=== PATIENT | male | born 1940 | race African-American/Black ===

== ENCOUNTER 2022-01-10 17:17 | Inpatient (IN) ==
[2022-01-10] MEDS ORDERED: SODIUM CHLORIDE 0.9% 1,000 ML IV STA ×2 (17:53→18:41)
[2022-01-10] MEDS ORDERED: PANTOPRAZOLE 40 MG VIAL IV STA (17:53)
[2022-01-10 18:01] LABS: Basophils % 0.1 % (0.0-0.8); Eosinophils % 0.1 % (0.00-10.9); Hematocrit 28.4 VOL% (42.0-52.0); Hemoglobin 9.1 GM/DL (14.0-18.0); Immature Granulocytes % 0.6 %; Immature Granulocytes Absolute 0.06 #; Lymphocytes # 0.7 10*3/uL (1.4-4.0); Lymphocytes % 6.9 % (21.2-54.2); Mean Corpuscular Volume 96.9 FL (87-102); Monocytes # 0.5 10*3/uL (0.11-0.8); Monocytes % 4.5 % (1.7-12.7); NRBC # 0.02 10*3/uL; Neutrophils % 87.8 % (38.7-73.9); Platelet Count 232 T/CUMM (130-400); Red Blood Count 2.93 MC/CUMM (3.8-5.5); Red Cell Distribution Width 14.3 % (9.3-17.3); White Blood Count 10.7 T/CUMM (4-12)
[2022-01-10 18:18] LABS: PT Patient Result 11.3 SECS (10.5-12.0)
[2022-01-10] MEDS ORDERED: ONDANSETRON 4 MG/2 ML VIAL ONE (18:31)
[2022-01-10 18:44] LABS: Bilirubin,Total 0.6 MG/DL (0.20-1.00); Calcium 9.6 MG/DL (8.5-10.1); Osmolality,Calculated 348.1 MOS/KG (273-304); Potassium 3.2 MMOL/L (3.5-5.1); Total Protein 7.8 G/DL (6.4-8.2)
[2022-01-10] MEDS ORDERED: NOREPINEPHRINE 4 MG/4 ML VIAL IV ONE (19:33)
[2022-01-10] MEDS ORDERED: PIPERACILLIN/TAZOBACTAM 3,375 MG in SODIUM CHLORIDE 0.9% 100 ML IV STA (19:40)
[2022-01-10] MEDS: NOREPINEPHRINE 8 MG in SODIUM CHLORIDE 0.9% 242 ML IV PRN (20:07)
[2022-01-10] MEDS ORDERED: ONDANSETRON 4 MG/2 ML VIAL IV PRN (20:14)
[2022-01-10] MEDS ORDERED: ALBUTEROL 2.5 MG/3 ML NEB RESP TX PRN (20:14)
[2022-01-10] MEDS ORDERED: SODIUM CHLORIDE 0.9% 1,000 ML IV PRN (20:28)
[2022-01-10] MEDS: SODIUM CHLORIDE 0.9% 1,000 ML IV SCH (20:30)
[2022-01-10 20:33] LABS: Hematocrit 20.3 VOL% (42.0-52.0); Hemoglobin 6.6 GM/DL (14.0-18.0)
[2022-01-10] MEDS ORDERED: ONDANSETRON 4 MG/2 ML VIAL IV STA (21:02)
[2022-01-10] MEDS ORDERED: MAGNESIUM SULF RIDER 2 GM/50 ML PREMIX IV PRN (21:48)
[2022-01-10] MEDS ORDERED: POTASSIUM CHLORIDE RIDER 10 MEQ/100 ML PREMIX IV PRN (21:48)
[2022-01-10] MEDS ORDERED: MAGNESIUM SULF RIDER 4 GM/100 ML PREMIX IV PRN (21:48)
[2022-01-10] MEDS: PANTOPRAZOLE INJ 200 MG in SODIUM CHLORIDE 0.9% 250 ML IV SCH (23:15)
[2022-01-10 23:27] LABS: Hematocrit 31.2 VOL% (42.0-52.0); Hemoglobin 10.5 GM/DL (14.0-18.0)
[2022-01-11] MEDS ORDERED: GLUCAGON 1 MG VIAL IM PRN (00:20)
[2022-01-11] MEDS ORDERED: DEXTROSE 10% 250 ML BAG IV PRN (00:22)
[2022-01-11 00:33] LABS: Hematocrit 30.1 VOL% (42.0-52.0); Hemoglobin 9.9 GM/DL (14.0-18.0)
[2022-01-11 03:33] LABS: Basophils % 0.1 % (0.0-0.8); Hemoglobin 8.8 GM/DL (14.0-18.0); Immature Granulocytes % 0.6 %; Immature Granulocytes Absolute 0.09 #; Lymphocytes # 0.5 10*3/uL (1.4-4.0); Lymphocytes % 3.1 % (21.2-54.2); Mean Corpuscular HGB Conc 33.8 GM/DL (32-36); Mean Corpuscular Volume 91.5 FL (87-102); Mean Platelet Volume 10.9 FL (9.6-12.0); Monocytes # 0.9 10*3/uL (0.11-0.8); Monocytes % 5.9 % (1.7-12.7); NRBC # 0.04 10*3/uL; Neutrophils % 90.3 % (38.7-73.9); Platelet Count 143 T/CUMM (130-400); Red Blood Count 2.84 MC/CUMM (3.8-5.5); Red Cell Distribution Width 14.1 % (9.3-17.3)
[2022-01-11 03:45] LABS: INR 1.1; PT Patient Result 12.2 SECS (10.5-12.0)
[2022-01-11 03:56] LABS: Lymphocytes 3 % (20-55); Platelet Estimate Adequate; Total Cells Counted 100
[2022-01-11 03:57] LABS: Acanthocytes Few; Poikilocytosis Slight
[2022-01-11 04:02] LABS: Albumin 2.1 G/DL (3.4-5.0); Bilirubin,Total 0.7 MG/DL (0.20-1.00); Calcium 7.7 MG/DL (8.5-10.1); Osmolality,Calculated 350.4 MOS/KG (273-304); Potassium 3.3 MMOL/L (3.5-5.1); Total Protein 5.3 G/DL (6.4-8.2)
[2022-01-11] MEDS: SODIUM CHLORIDE 0.9% 1,000 ML IV SCH ×5 (04:53→21:55)
[2022-01-11] MEDS: MORPHINE 2 MG/1 ML SYRINGE IV PRN (04:54)
[2022-01-11 05:14] LABS: Amorphous Crystals,Urine Few /HPF (Few); Bacteria,Urine Many /HPF (Few); RBC,Urine 52 /HPF (0-4)
[2022-01-11 05:19] LABS: Urine Appearance Cloudy (Clear); Urine Color Yellow (Yellow); Urine Specific Gravity 1.015 (1.001-1.035); Urine pH 5.5 (4.5-8.0)
[2022-01-11 05:20] LABS: Bilirubin,Urine Negative (Negative); Blood, Urine Moderate mg/dL (Negative); Glucose,Urine (UA) Negative (Negative); Ketones,Urine Negative (Negative); Nitrite,Urine Negative (Negative); Protein,Urine Negative (Negative); Urine Urobilinogen 0.2 eU/dL (<2.0)
[2022-01-11] MEDS ORDERED: SODIUM CHLORIDE 0.9% 1,000 ML IV PRN (06:00)
[2022-01-11] MEDS: INSULIN LISPRO 100 UNIT/ML SUBCUT SCH ×3 (06:10→18:05)
[2022-01-11] MEDS: NOREPINEPHRINE 8 MG in SODIUM CHLORIDE 0.9% 242 ML IV PRN ×3 (06:30→21:20)
[2022-01-11] MEDS ORDERED: HEPARIN/NACL 0.9% 2 UNITS/ML 6,000 UNIT/3,000 ML BAG IV ONE (09:41)
[2022-01-11] MEDS ORDERED: fentaNYL 100 MCG/2 ML VIAL ONE (09:55)
[2022-01-11] MEDS ORDERED: ceFAZolin 1,000 MG VIAL ONE (09:56)
[2022-01-11] MEDS ORDERED: MIDAZOLAM 2 MG/2 ML VIAL ONE (09:56)
[2022-01-11] MEDS ORDERED: NOREPINEPHRINE 4 MG/4 ML VIAL IV ONE (10:01)
[2022-01-11 10:55] LABS: Risk Ratio 2.94; VLDL Cholesterol 20.8 MG/DL
[2022-01-11 12:55] LABS: Hematocrit 25.1 VOL% (42.0-52.0); Hemoglobin 8.8 GM/DL (14.0-18.0)
[2022-01-11] MEDS: BISACODYL 5 MG TABLET NG SCH ×3 (13:47→22:30)
[2022-01-11] MEDS ORDERED: POLYETHYLENE GLYCOL 3350/ELECTROLYTES 4,000 ML BOTTLE NG ONE (14:00)
[2022-01-11] MEDS: PIPERACILLIN/TAZOBACTAM 3,375 MG in SODIUM CHLORIDE 0.9% 100 ML IV SCH (14:37)
[2022-01-11] MEDS: LACTULOSE 20 GM/30 ML UDCUP PO SCH ×3 (14:37→21:55)
[2022-01-11 18:07] LABS: Hemoglobin 8.5 GM/DL (14.0-18.0)
[2022-01-11 20:11] LABS: Hematocrit 23.1 VOL% (42.0-52.0); Hemoglobin 8.1 GM/DL (14.0-18.0)
[2022-01-11] MEDS ORDERED: MAGNESIUM CITRATE 300 ML BOTTLE PO ONE ×2 (21:00→22:00)
[2022-01-11] MEDS: PANTOPRAZOLE INJ 200 MG in SODIUM CHLORIDE 0.9% 250 ML IV SCH (21:55)
[2022-01-11] MEDS ORDERED: METHYL SALICYLATE 60 ML BOTTLE TOP PRN (22:00)
[2022-01-11] MEDS: PANTOPRAZOLE 40 MG VIAL IV SCH (23:00)
[2022-01-12] MEDS: SODIUM CHLORIDE 0.9% 1,000 ML IV SCH ×4 (00:03→17:10)
[2022-01-12] MEDS: INSULIN LISPRO 100 UNIT/ML SUBCUT SCH ×4 (00:22→17:30)
[2022-01-12 00:31] LABS: Hematocrit 24.3 VOL% (42.0-52.0); Hemoglobin 8.4 GM/DL (14.0-18.0)
[2022-01-12] MEDS: PIPERACILLIN/TAZOBACTAM 3,375 MG in SODIUM CHLORIDE 0.9% 100 ML IV SCH (02:00)
[2022-01-12 03:51] LABS: Basophils % 0.1 % (0.0-0.8); Hematocrit 22.4 VOL% (42.0-52.0); Immature Granulocytes % 0.7 %; Lymphocytes # 0.4 10*3/uL (1.4-4.0); Lymphocytes % 2.6 % (21.2-54.2); Mean Corpuscular HGB Conc 35.7 GM/DL (32-36); Mean Corpuscular Volume 89.6 FL (87-102); Mean Platelet Volume 10.7 FL (9.6-12.0); Monocytes # 0.7 10*3/uL (0.11-0.8); Monocytes % 4.8 % (1.7-12.7); NRBC # 0.04 10*3/uL; Neutrophils % 91.8 % (38.7-73.9); Platelet Count 96 T/CUMM (130-400); Red Cell Distribution Width 14.2 % (9.3-17.3); White Blood Count 14.5 T/CUMM (4-12)
[2022-01-12 04:10] LABS: Band Neutrophils 1 % (0-10); Lymphocytes 3 % (20-55); Polychromasia Slight; Total Cells Counted 100
[2022-01-12 04:12] LABS: Microcytosis 1+
[2022-01-12 04:32] LABS: Albumin 1.9 G/DL (3.4-5.0); Bilirubin,Total 0.5 MG/DL (0.20-1.00); Calcium 7.4 MG/DL (8.5-10.1); Total Protein 4.7 G/DL (6.4-8.2)
[2022-01-12 04:33] LABS: Potassium 2.5 MMOL/L (3.5-5.1)
[2022-01-12] MEDS ORDERED: POTASSIUM CHLORIDE RIDER 10 MEQ/100 ML PREMIX IV PRN (04:43)
[2022-01-12] MEDS: POTASSIUM CHLORIDE RIDER 20 MEQ/100 ML PREMIX IV PRN ×4 (05:00→13:53)
[2022-01-12] MEDS: NOREPINEPHRINE 8 MG in SODIUM CHLORIDE 0.9% 242 ML IV PRN (06:06)
[2022-01-12 07:11] LABS: Hemoglobin 7.3 GM/DL (14.0-18.0)
[2022-01-12] MEDS: LACTULOSE 20 GM/30 ML UDCUP PO SCH ×5 (08:19→22:00)
[2022-01-12 08:21] LABS: INR 1.1; PT Patient Result 12.3 SECS (10.5-12.0)
[2022-01-12] MEDS: metroNIDAZOLE INJ 500 MG/100 ML PREMIX IV SCH ×2 (08:50→20:00)
[2022-01-12] MEDS: PANTOPRAZOLE 40 MG VIAL IV SCH ×2 (08:50→21:00)
[2022-01-12] MEDS: cefTRIAXone 1,000 MG in SODIUM CHLORIDE 0.9% 100 ML IV SCH (08:50)
[2022-01-12] MEDS ORDERED: ETOMIDATE 20 MG/10 ML VIAL IV ONE (08:58)
[2022-01-12] MEDS ORDERED: LIDOCAINE 2% 5 ML VIAL ONE (08:58)
[2022-01-12] MEDS ORDERED: propofoL 200 MG/20 ML VIAL IV ONE (08:58)
[2022-01-12] MEDS ORDERED: KETAMINE 500 MG/10 ML VIAL ONE (10:06)
[2022-01-12] MEDS ORDERED: SODIUM CHLORIDE 0.9% 1,000 ML IV PRN (10:14)
[2022-01-12 10:22] LABS: Calcium 7.1 MG/DL (8.5-10.1); Osmolality,Calculated 343.7 MOS/KG (273-304); Potassium 3.4 MMOL/L (3.5-5.1)
[2022-01-12] MEDS ORDERED: ZINC OXIDE PASTE 113 GM TUBE TOP PRN (15:13)
[2022-01-12 18:52] LABS: Hematocrit 29.8 VOL% (42.0-52.0); Hemoglobin 10.2 GM/DL (14.0-18.0)
[2022-01-13] MEDS: INSULIN LISPRO 100 UNIT/ML SUBCUT SCH ×4 (00:28→18:01)
[2022-01-13] MEDS: SODIUM CHLORIDE 0.9% 1,000 ML IV SCH ×2 (01:01→06:19)
[2022-01-13] MEDS: NOREPINEPHRINE 8 MG in SODIUM CHLORIDE 0.9% 242 ML IV PRN (01:55)
[2022-01-13] MEDS: LACTULOSE 20 GM/30 ML UDCUP PO SCH ×6 (02:00→22:22)
[2022-01-13] MEDS: POTASSIUM CHLORIDE RIDER 20 MEQ/100 ML PREMIX IV PRN ×6 (04:15→19:10)
[2022-01-13 04:24] LABS: Basophils % 0.1 % (0.0-0.8); Eosinophils % 0.1 % (0.00-10.9); Hematocrit 27.5 VOL% (42.0-52.0); Hemoglobin 9.6 GM/DL (14.0-18.0); Immature Granulocytes % 0.8 %; Immature Granulocytes Absolute 0.11 #; Lymphocytes # 0.5 10*3/uL (1.4-4.0); Lymphocytes % 3.7 % (21.2-54.2); Mean Corpuscular HGB Conc 34.9 GM/DL (32-36); Mean Corpuscular Volume 87.9 FL (87-102); Mean Platelet Volume 10.9 FL (9.6-12.0); Monocytes # 0.7 10*3/uL (0.11-0.8); Monocytes % 4.9 % (1.7-12.7); NRBC # 0.04 10*3/uL; Neutrophils % 90.4 % (38.7-73.9); Platelet Count 75 T/CUMM (130-400); Red Blood Count 3.13 MC/CUMM (3.8-5.5); Red Cell Distribution Width 15.7 % (9.3-17.3)
[2022-01-13 04:38] LABS: Alanine Aminotransferase 42 U/L (16-61); Albumin 1.7 G/DL (3.4-5.0); Alkaline Phosphatase 161 U/L (45-117); Aspartate Amino Transferase 102 U/L (0-37); Bilirubin,Total < 0.39 MG/DL (0.20-1.00); Blood Urea Nitrogen 148 MG/DL (7-18); Calcium 7.5 MG/DL (8.5-10.1); Carbon Dioxide 20 MMOL/L (21-32); Chloride 122 MMOL/L (98-107); Glucose 186 MG/DL (74-106); Osmolality,Calculated 351.9 MOS/KG (273-304); Potassium 2.7 MMOL/L (3.5-5.1); Sodium 151 MMOL/L (136-145); Total Protein 4.3 G/DL (6.4-8.2)
[2022-01-13 04:42] LABS: Lymphocytes 6 % (20-55); Total Cells Counted 100
[2022-01-13 04:43] LABS: Burr Cells Few; Microcytosis 1+; Ovalocytes Slight
[2022-01-13 04:44] LABS: Platelet Estimate Decreased; Polychromasia Slight
[2022-01-13 07:06] LABS: INR 1.1; PT Patient Result 11.9 SECS (10.5-12.0)
[2022-01-13] MEDS: metroNIDAZOLE INJ 500 MG/100 ML PREMIX IV SCH ×2 (09:06→21:51)
[2022-01-13] MEDS: cefTRIAXone 1,000 MG in SODIUM CHLORIDE 0.9% 100 ML IV SCH (09:06)
[2022-01-13] MEDS: PANTOPRAZOLE 40 MG VIAL IV SCH ×2 (09:07→21:55)
[2022-01-13] MEDS: MORPHINE 2 MG/1 ML SYRINGE IV PRN (14:46)
[2022-01-13 23:08] LABS: Calcium 7.7 MG/DL (8.5-10.1); Potassium 3.8 MMOL/L (3.5-5.1)
[2022-01-13 23:10] LABS: Osmolality,Calculated 355.6 MOS/KG (273-304)
[2022-01-14] MEDS: INSULIN LISPRO 100 UNIT/ML SUBCUT SCH ×5 (01:41→23:44)
[2022-01-14] MEDS: MORPHINE 2 MG/1 ML SYRINGE IV PRN ×3 (02:00→21:42)
[2022-01-14 03:15] LABS: Basophils % 0.1 % (0.0-0.8); Eosinophils % 0.1 % (0.00-10.9); Hematocrit 26.5 VOL% (42.0-52.0); Hemoglobin 8.9 GM/DL (14.0-18.0); Immature Granulocytes % 0.9 %; Immature Granulocytes Absolute 0.12 #; Lymphocytes # 0.5 10*3/uL (1.4-4.0); Lymphocytes % 3.9 % (21.2-54.2); Mean Corpuscular HGB Conc 33.6 GM/DL (32-36); Mean Corpuscular Volume 89.2 FL (87-102); Mean Platelet Volume 10.7 FL (9.6-12.0); Monocytes # 0.6 10*3/uL (0.11-0.8); Monocytes % 4.5 % (1.7-12.7); NRBC # 0.03 10*3/uL; Neutrophils % 90.5 % (38.7-73.9); Red Blood Count 2.97 MC/CUMM (3.8-5.5); Red Cell Distribution Width 17.3 % (9.3-17.3); White Blood Count 13.2 T/CUMM (4-12)
[2022-01-14] MEDS: LACTULOSE 20 GM/30 ML UDCUP PO SCH ×5 (03:19→22:26)
[2022-01-14 03:31] LABS: Osmolality,Calculated 353.3 MOS/KG (273-304); Phosphorous 1.8 MG/DL (2.5-4.9); Potassium 3.7 MMOL/L (3.5-5.1)
[2022-01-14 03:44] LABS: Platelet Count 77 T/CUMM (130-400)
[2022-01-14 03:54] LABS: Lymphocytes 1 % (20-55); Platelet Estimate Decreased; Total Cells Counted 100
[2022-01-14] MEDS: POTASSIUM CHLORIDE RIDER 20 MEQ/100 ML PREMIX IV PRN (04:30)
[2022-01-14] MEDS: cefTRIAXone 1,000 MG in SODIUM CHLORIDE 0.9% 100 ML IV SCH (08:02)
[2022-01-14] MEDS: PANTOPRAZOLE 40 MG VIAL IV SCH ×2 (08:03→21:40)
[2022-01-14] MEDS: metroNIDAZOLE INJ 500 MG/100 ML PREMIX IV SCH (08:28)
[2022-01-14] MEDS ORDERED: POTASSIUM PHOSPHATE 30 MMOL in SODIUM CHLORIDE 0.9% 250 ML IV ONE (10:00)
[2022-01-14] MEDS: MEMANTINE 5 MG TABLET PO SCH (21:41)
[2022-01-14] MEDS: RIVASTIGMINE 1.5 MG CAPSULE PO SCH (21:41)
[2022-01-15 03:24] LABS: Basophils % 0.1 % (0.0-0.8); Eosinophils # 0.1 10*3/uL (0.0-0.87); Eosinophils % 0.6 % (0.00-10.9); Hematocrit 26.7 VOL% (42.0-52.0); Hemoglobin 8.8 GM/DL (14.0-18.0); Immature Granulocytes % 0.5 %; Immature Granulocytes Absolute 0.06 #; Lymphocytes # 0.6 10*3/uL (1.4-4.0); Lymphocytes % 5.6 % (21.2-54.2); Mean Corpuscular Volume 92.7 FL (87-102); Mean Platelet Volume 11.1 FL (9.6-12.0); Monocytes # 0.6 10*3/uL (0.11-0.8); Monocytes % 5.3 % (1.7-12.7); NRBC # 0.05 10*3/uL; Neutrophils % 87.9 % (38.7-73.9); Platelet Count 75 T/CUMM (130-400); Red Blood Count 2.88 MC/CUMM (3.8-5.5); Red Cell Distribution Width 18.4 % (9.3-17.3)
[2022-01-15 03:45] LABS: Alanine Aminotransferase 30 U/L (16-61); Albumin 1.6 G/DL (3.4-5.0); Alkaline Phosphatase 225 U/L (45-117); Aspartate Amino Transferase 75 U/L (0-37); Bilirubin,Total < 0.39 MG/DL (0.20-1.00); Blood Urea Nitrogen 134 MG/DL (7-18); Calcium 8.3 MG/DL (8.5-10.1); Carbon Dioxide 21 MMOL/L (21-32); Chloride 130 MMOL/L (98-107); Glucose 131 MG/DL (74-106); Osmolality,Calculated 356.9 MOS/KG (273-304); Potassium 4.4 MMOL/L (3.5-5.1); Sodium 158 MMOL/L (136-145); Total Protein 4.7 G/DL (6.4-8.2)
[2022-01-15] MEDS: INSULIN LISPRO 100 UNIT/ML SUBCUT SCH ×4 (05:14→23:51)
[2022-01-15] MEDS: LACTULOSE 20 GM/30 ML UDCUP PO SCH ×3 (09:15→20:41)
[2022-01-15] MEDS: RIVASTIGMINE 1.5 MG CAPSULE PO SCH ×2 (09:15→20:41)
[2022-01-15] MEDS: MULTIVITAMIN (CENTRUM) TABLET PO SCH (09:15)
[2022-01-15] MEDS: CHOLECALCIFEROL 1,000 UNIT TABLET PO SCH (09:15)
[2022-01-15] MEDS: MEMANTINE 5 MG TABLET PO SCH ×2 (09:15→20:41)
[2022-01-15] MEDS: allopurinoL 300 MG TABLET PO SCH (09:15)
[2022-01-15] MEDS: DEXTROSE 5% 1,000 ML IV SCH (09:30)
[2022-01-15] MEDS: PANTOPRAZOLE 40 MG VIAL IV SCH ×2 (11:07→20:41)
[2022-01-15] MEDS: MORPHINE 2 MG/1 ML SYRINGE IV PRN (14:44)
[2022-01-16 03:21] LABS: Basophils % 0.1 % (0.0-0.8); Eosinophils # 0.1 10*3/uL (0.0-0.87); Eosinophils % 1.4 % (0.00-10.9); Hematocrit 25.3 VOL% (42.0-52.0); Hemoglobin 8.2 GM/DL (14.0-18.0); Immature Granulocytes % 0.9 %; Immature Granulocytes Absolute 0.08 #; Lymphocytes # 0.8 10*3/uL (1.4-4.0); Lymphocytes % 8.2 % (21.2-54.2); Mean Corpuscular HGB Conc 32.4 GM/DL (32-36); Mean Corpuscular Volume 96.2 FL (87-102); Mean Platelet Volume 11.4 FL (9.6-12.0); Monocytes # 0.7 10*3/uL (0.11-0.8); Monocytes % 7.2 % (1.7-12.7); NRBC # 0.06 10*3/uL; Neutrophils % 82.2 % (38.7-73.9); Platelet Count 76 T/CUMM (130-400); Red Blood Count 2.63 MC/CUMM (3.8-5.5); Red Cell Distribution Width 19.4 % (9.3-17.3); White Blood Count 9.3 T/CUMM (4-12)
[2022-01-16 03:37] LABS: Alanine Aminotransferase 54 U/L (16-61); Albumin 1.5 G/DL (3.4-5.0); Alkaline Phosphatase 259 U/L (45-117); Aspartate Amino Transferase 124 U/L (0-37); Bilirubin,Total < 0.39 MG/DL (0.20-1.00); Blood Urea Nitrogen 129 MG/DL (7-18); Carbon Dioxide 22 MMOL/L (21-32); Chloride 126 MMOL/L (98-107); Glucose 175 MG/DL (74-106); Osmolality,Calculated 350.4 MOS/KG (273-304); Potassium 4.2 MMOL/L (3.5-5.1); Sodium 154 MMOL/L (136-145); Total Protein 4.5 G/DL (6.4-8.2)
[2022-01-16 04:02] LABS: Platelet Estimate Decreased
[2022-01-16] MEDS: INSULIN LISPRO 100 UNIT/ML SUBCUT SCH ×3 (06:12→18:57)
[2022-01-16] MEDS: DEXTROSE 5% 1,000 ML IV SCH (06:12)
[2022-01-16] MEDS: LACTULOSE 20 GM/30 ML UDCUP PO SCH ×2 (09:15→20:23)
[2022-01-16] MEDS: MULTIVITAMIN (CENTRUM) TABLET PO SCH (09:15)
[2022-01-16] MEDS: allopurinoL 300 MG TABLET PO SCH (09:15)
[2022-01-16] MEDS: CHOLECALCIFEROL 1,000 UNIT TABLET PO SCH (09:15)
[2022-01-16] MEDS: PANTOPRAZOLE 40 MG VIAL IV SCH ×2 (09:15→20:23)
[2022-01-16] MEDS: MEMANTINE 5 MG TABLET PO SCH ×2 (09:15→20:24)
[2022-01-16] MEDS: RIVASTIGMINE 1.5 MG CAPSULE PO SCH ×2 (09:15→20:23)
[2022-01-16] MEDS ORDERED: FUROSEMIDE 100 MG/10 ML VIAL IV ONE (13:34)
[2022-01-17] MEDS: INSULIN LISPRO 100 UNIT/ML SUBCUT SCH ×5 (00:12→20:04)
[2022-01-17] MEDS: DEXTROSE 5% 1,000 ML IV SCH ×2 (02:46→22:49)
[2022-01-17 06:08] LABS: Basophils % 0.1 % (0.0-0.8); Eosinophils # 0.1 10*3/uL (0.0-0.87); Hematocrit 26.1 VOL% (42.0-52.0); Hemoglobin 8.7 GM/DL (14.0-18.0); Lymphocytes # 1.1 10*3/uL (1.4-4.0); Lymphocytes % 10.8 % (21.2-54.2); Mean Corpuscular HGB Conc 33.3 GM/DL (32-36); Mean Corpuscular Volume 91.6 FL (87-102); Mean Platelet Volume 11.3 FL (9.6-12.0); Monocytes # 0.7 10*3/uL (0.11-0.8); Monocytes % 7.4 % (1.7-12.7); NRBC # 0.04 10*3/uL; Neutrophils % 79.7 % (38.7-73.9); Platelet Count 81 T/CUMM (130-400); Red Blood Count 2.85 MC/CUMM (3.8-5.5); Red Cell Distribution Width 19.3 % (9.3-17.3); White Blood Count 9.9 T/CUMM (4-12)
[2022-01-17 06:29] LABS: Hypochromia 1+; Platelet Estimate Decreased
[2022-01-17 06:33] LABS: Alanine Aminotransferase 54 U/L (16-61); Albumin 1.8 G/DL (3.4-5.0); Alkaline Phosphatase 242 U/L (45-117); Aspartate Amino Transferase 104 U/L (0-37); Bilirubin,Total < 0.39 MG/DL (0.20-1.00); Blood Urea Nitrogen 126 MG/DL (7-18); Calcium 8.5 MG/DL (8.5-10.1); Carbon Dioxide 22 MMOL/L (21-32); Chloride 120 MMOL/L (98-107); Glucose 144 MG/DL (74-106); Osmolality,Calculated 337.3 MOS/KG (273-304); Phosphorous 2.7 MG/DL (2.5-4.9); Potassium 3.9 MMOL/L (3.5-5.1); Sodium 148 MMOL/L (136-145); Total Protein 5.2 G/DL (6.4-8.2)
[2022-01-17] MEDS: allopurinoL 300 MG TABLET PO SCH (09:05)
[2022-01-17] MEDS: RIVASTIGMINE 1.5 MG CAPSULE PO SCH ×2 (09:05→20:04)
[2022-01-17] MEDS: CHOLECALCIFEROL 1,000 UNIT TABLET PO SCH (09:05)
[2022-01-17] MEDS: MEMANTINE 5 MG TABLET PO SCH ×2 (09:05→20:04)
[2022-01-17] MEDS: MULTIVITAMIN (CENTRUM) TABLET PO SCH (09:05)
[2022-01-17] MEDS: LACTULOSE 20 GM/30 ML UDCUP PO SCH ×2 (09:05→20:04)
[2022-01-17] MEDS: PANTOPRAZOLE 40 MG VIAL IV SCH ×2 (10:06→20:04)
[2022-01-18 03:57] LABS: Basophils % 0.2 % (0.0-0.8); Eosinophils # 0.1 10*3/uL (0.0-0.87); Eosinophils % 1.3 % (0.00-10.9); Hematocrit 26.1 VOL% (42.0-52.0); Hemoglobin 8.6 GM/DL (14.0-18.0); Immature Granulocytes % 1.2 %; Lymphocytes % 11.4 % (21.2-54.2); Mean Corpuscular Volume 92.2 FL (87-102); Mean Platelet Volume 10.9 FL (9.6-12.0); Monocytes # 0.7 10*3/uL (0.11-0.8); Monocytes % 7.5 % (1.7-12.7); NRBC # 0.05 10*3/uL; Neutrophils % 78.4 % (38.7-73.9); Red Blood Count 2.83 MC/CUMM (3.8-5.5); Red Cell Distribution Width 18.8 % (9.3-17.3); White Blood Count 8.7 T/CUMM (4-12)
[2022-01-18 04:02] LABS: Platelet Count 84 T/CUMM (130-400)
[2022-01-18 04:11] LABS: Calcium 8.2 MG/DL (8.5-10.1); Osmolality,Calculated 322.8 MOS/KG (273-304); Potassium 3.7 MMOL/L (3.5-5.1)
[2022-01-18 04:21] LABS: Platelet Estimate Decreased
[2022-01-18] MEDS: INSULIN LISPRO 100 UNIT/ML SUBCUT SCH ×4 (07:07→21:02)
[2022-01-18] MEDS: LACTULOSE 20 GM/30 ML UDCUP PO SCH ×2 (08:41→21:47)
[2022-01-18] MEDS: MULTIVITAMIN (CENTRUM) TABLET PO SCH (08:42)
[2022-01-18] MEDS: PANTOPRAZOLE 40 MG VIAL IV SCH ×2 (08:42→21:47)
[2022-01-18] MEDS: CHOLECALCIFEROL 1,000 UNIT TABLET PO SCH (08:42)
[2022-01-18] MEDS: MEMANTINE 5 MG TABLET PO SCH ×2 (08:42→21:47)
[2022-01-18] MEDS: RIVASTIGMINE 1.5 MG CAPSULE PO SCH ×2 (08:42→21:47)
[2022-01-18] MEDS: allopurinoL 300 MG TABLET PO SCH (08:42)
[2022-01-18] MEDS: DEXTROSE 5% 1,000 ML IV SCH (18:15)
[2022-01-19 04:24] LABS: Basophils % 0.2 % (0.0-0.8); Eosinophils # 0.1 10*3/uL (0.0-0.87); Eosinophils % 1.1 % (0.00-10.9); Hematocrit 24.5 VOL% (42.0-52.0); Immature Granulocytes % 1.2 %; Immature Granulocytes Absolute 0.08 #; Lymphocytes # 0.8 10*3/uL (1.4-4.0); Lymphocytes % 12.3 % (21.2-54.2); Mean Corpuscular HGB Conc 32.7 GM/DL (32-36); Mean Corpuscular Volume 91.1 FL (87-102); Mean Platelet Volume 11.7 FL (9.6-12.0); Monocytes # 0.4 10*3/uL (0.11-0.8); Monocytes % 6.2 % (1.7-12.7); Red Blood Count 2.69 MC/CUMM (3.8-5.5); Red Cell Distribution Width 18.2 % (9.3-17.3); White Blood Count 6.7 T/CUMM (4-12)
[2022-01-19 04:33] LABS: Platelet Count 95 T/CUMM (130-400)
[2022-01-19 04:37] LABS: Calcium 8.4 MG/DL (8.5-10.1); Osmolality,Calculated 311.4 MOS/KG (273-304); Potassium 3.3 MMOL/L (3.5-5.1)
[2022-01-19 04:48] LABS: Lymphocytes 15 % (20-55); Microcytosis 1+; Nucleated Red Blood Cells 1 (0-5); Total Cells Counted 100
[2022-01-19 04:49] LABS: Anisocytosis 1+; Ovalocytes Slight
[2022-01-19] MEDS: INSULIN LISPRO 100 UNIT/ML SUBCUT SCH ×4 (08:08→20:36)
[2022-01-19] MEDS: POTASSIUM CHLORIDE RIDER 20 MEQ/100 ML PREMIX IV PRN (08:09)
[2022-01-19] MEDS: MULTIVITAMIN (CENTRUM) TABLET PO SCH (08:09)
[2022-01-19] MEDS: PANTOPRAZOLE 40 MG VIAL IV SCH (08:09)
[2022-01-19] MEDS: LACTULOSE 20 GM/30 ML UDCUP PO SCH ×2 (08:09→20:35)
[2022-01-19] MEDS: CHOLECALCIFEROL 1,000 UNIT TABLET PO SCH (08:10)
[2022-01-19] MEDS: MEMANTINE 5 MG TABLET PO SCH ×2 (08:10→20:35)
[2022-01-19] MEDS: allopurinoL 300 MG TABLET PO SCH (08:10)
[2022-01-19] MEDS: RIVASTIGMINE 1.5 MG CAPSULE PO SCH ×2 (08:10→20:35)
[2022-01-20 04:24] LABS: Calcium 8.4 MG/DL (8.5-10.1); Osmolality,Calculated 302.7 MOS/KG (273-304); Potassium 3.8 MMOL/L (3.5-5.1)
[2022-01-20] MEDS: POTASSIUM CHLORIDE RIDER 20 MEQ/100 ML PREMIX IV PRN (06:00)
[2022-01-20 07:32] LABS: Basophils % 0.1 % (0.0-0.8); Eosinophils # 0.1 10*3/uL (0.0-0.87); Hematocrit 25.5 VOL% (42.0-52.0); Hemoglobin 8.4 GM/DL (14.0-18.0); Immature Granulocytes % 0.5 %; Immature Granulocytes Absolute 0.04 #; Lymphocytes # 0.8 10*3/uL (1.4-4.0); Lymphocytes % 11.1 % (21.2-54.2); Mean Corpuscular HGB Conc 32.9 GM/DL (32-36); Mean Corpuscular Volume 91.7 FL (87-102); Mean Platelet Volume 11.8 FL (9.6-12.0); Monocytes # 0.5 10*3/uL (0.11-0.8); Monocytes % 7.4 % (1.7-12.7); Neutrophils % 79.9 % (38.7-73.9); Platelet Count 115 T/CUMM (130-400); Red Blood Count 2.78 MC/CUMM (3.8-5.5); Red Cell Distribution Width 18.3 % (9.3-17.3); White Blood Count 7.3 T/CUMM (4-12)
[2022-01-20] MEDS: MULTIVITAMIN (CENTRUM) TABLET PO SCH (08:38)
[2022-01-20] MEDS: LACTULOSE 20 GM/30 ML UDCUP PO SCH (08:38)
[2022-01-20] MEDS: INSULIN LISPRO 100 UNIT/ML SUBCUT SCH ×4 (08:38→20:14)
[2022-01-20] MEDS: RIVASTIGMINE 1.5 MG CAPSULE PO SCH ×2 (08:38→20:16)
[2022-01-20] MEDS: PANTOPRAZOLE 40 MG VIAL IV SCH (08:39)
[2022-01-20] MEDS: allopurinoL 300 MG TABLET PO SCH (08:39)
[2022-01-20] MEDS: MEMANTINE 5 MG TABLET PO SCH ×2 (08:39→20:16)
[2022-01-20] MEDS: CHOLECALCIFEROL 1,000 UNIT TABLET PO SCH (08:39)
[2022-01-20] MEDS ORDERED: LEVOFLOXACIN 750 MG TABLET PO ONE (09:36)
[2022-01-21 04:03] LABS: Basophils % 0.3 % (0.0-0.8); Eosinophils # 0.1 10*3/uL (0.0-0.87); Eosinophils % 1.1 % (0.00-10.9); Hematocrit 25.6 VOL% (42.0-52.0); Hemoglobin 8.3 GM/DL (14.0-18.0); Immature Granulocytes % 0.6 %; Immature Granulocytes Absolute 0.04 #; Lymphocytes # 0.9 10*3/uL (1.4-4.0); Lymphocytes % 12.3 % (21.2-54.2); Mean Corpuscular HGB Conc 32.4 GM/DL (32-36); Mean Corpuscular Volume 93.1 FL (87-102); Mean Platelet Volume 12.2 FL (9.6-12.0); Monocytes # 0.5 10*3/uL (0.11-0.8); Monocytes % 6.9 % (1.7-12.7); Neutrophils % 78.8 % (38.7-73.9); Platelet Count 92 T/CUMM (130-400); Red Blood Count 2.75 MC/CUMM (3.8-5.5); Red Cell Distribution Width 18.1 % (9.3-17.3)
[2022-01-21 04:23] LABS: Calcium 8.1 MG/DL (8.5-10.1); Osmolality,Calculated 292.8 MOS/KG (273-304); Potassium 3.8 MMOL/L (3.5-5.1)
[2022-01-21 04:45] LABS: Platelet Estimate Decreased
[2022-01-21] MEDS: POTASSIUM CHLORIDE RIDER 20 MEQ/100 ML PREMIX IV PRN (04:50)
[2022-01-21] MEDS: INSULIN LISPRO 100 UNIT/ML SUBCUT SCH ×4 (06:37→20:45)
[2022-01-21] MEDS ORDERED: FUROSEMIDE 40 MG/4 ML VIAL IV ONE (09:26)
[2022-01-21] MEDS: allopurinoL 300 MG TABLET PO SCH (10:06)
[2022-01-21] MEDS: CHOLECALCIFEROL 1,000 UNIT TABLET PO SCH (10:06)
[2022-01-21] MEDS: MEMANTINE 5 MG TABLET PO SCH ×2 (10:06→20:46)
[2022-01-21] MEDS: LACTULOSE 20 GM/30 ML UDCUP PO SCH (10:06)
[2022-01-21] MEDS: MULTIVITAMIN (CENTRUM) TABLET PO SCH (10:06)
[2022-01-21] MEDS: RIVASTIGMINE 1.5 MG CAPSULE PO SCH ×2 (10:06→20:46)
[2022-01-21] MEDS: PANTOPRAZOLE 40 MG VIAL IV SCH (10:07)
[2022-01-21] MEDS: METOPROLOL TARTRATE 25 MG TABLET PO SCH ×2 (10:08→20:46)
[2022-01-21] MEDS ORDERED: TUBERCULIN SKIN TEST 0.1 ML SYRINGE INTRADERM ONE (15:00)
[2022-01-22 04:04] LABS: Basophils % 0.3 % (0.0-0.8); Eosinophils # 0.1 10*3/uL (0.0-0.87); Eosinophils % 0.9 % (0.00-10.9); Hematocrit 24.9 VOL% (42.0-52.0); Hemoglobin 8.1 GM/DL (14.0-18.0); Immature Granulocytes % 0.4 %; Immature Granulocytes Absolute 0.03 #; Lymphocytes # 0.9 10*3/uL (1.4-4.0); Lymphocytes % 12.9 % (21.2-54.2); Mean Corpuscular HGB Conc 32.5 GM/DL (32-36); Mean Corpuscular Volume 91.9 FL (87-102); Mean Platelet Volume 10.4 FL (9.6-12.0); Monocytes # 0.5 10*3/uL (0.11-0.8); Monocytes % 7.6 % (1.7-12.7); Neutrophils % 77.9 % (38.7-73.9); Platelet Count 135 T/CUMM (130-400); Red Blood Count 2.71 MC/CUMM (3.8-5.5); Red Cell Distribution Width 17.9 % (9.3-17.3)
[2022-01-22 04:25] LABS: Calcium 8.2 MG/DL (8.5-10.1); Osmolality,Calculated 305.3 MOS/KG (273-304); Potassium 3.5 MMOL/L (3.5-5.1)
[2022-01-22] MEDS: MEMANTINE 5 MG TABLET PO SCH ×2 (08:08→22:19)
[2022-01-22] MEDS: MULTIVITAMIN (CENTRUM) TABLET PO SCH (08:08)
[2022-01-22] MEDS: METOPROLOL TARTRATE 25 MG TABLET PO SCH ×2 (08:09→22:20)
[2022-01-22] MEDS: allopurinoL 300 MG TABLET PO SCH (08:09)
[2022-01-22] MEDS: CHOLECALCIFEROL 1,000 UNIT TABLET PO SCH (08:09)
[2022-01-22] MEDS: RIVASTIGMINE 1.5 MG CAPSULE PO SCH ×2 (08:09→22:19)
[2022-01-22] MEDS: LACTULOSE 20 GM/30 ML UDCUP PO SCH (08:09)
[2022-01-22] MEDS: INSULIN LISPRO 100 UNIT/ML SUBCUT SCH ×4 (08:44→22:23)
[2022-01-22] MEDS ORDERED: LEVOFLOXACIN 500 MG TABLET PO SCH (10:00)
[2022-01-22] MEDS: PANTOPRAZOLE 40 MG VIAL IV SCH (10:09)
[2022-01-22] MEDS ORDERED: SKIN HEALING OINT (AQUAPHOR) 50 GM TUBE TOP PRN (15:04)
[2022-01-23 05:05] LABS: Basophils % 0.2 % (0.0-0.8); Eosinophils # 0.1 10*3/uL (0.0-0.87); Eosinophils % 1.4 % (0.00-10.9); Hematocrit 23.7 VOL% (42.0-52.0); Hemoglobin 7.8 GM/DL (14.0-18.0); Immature Granulocytes % 0.6 %; Immature Granulocytes Absolute 0.04 #; Lymphocytes # 1.1 10*3/uL (1.4-4.0); Lymphocytes % 16.4 % (21.2-54.2); Mean Corpuscular HGB Conc 32.9 GM/DL (32-36); Mean Corpuscular Volume 91.5 FL (87-102); Mean Platelet Volume 11.1 FL (9.6-12.0); Monocytes # 0.6 10*3/uL (0.11-0.8); Monocytes % 8.6 % (1.7-12.7); Neutrophils % 72.8 % (38.7-73.9); Platelet Count 157 T/CUMM (130-400); Red Blood Count 2.59 MC/CUMM (3.8-5.5); Red Cell Distribution Width 17.7 % (9.3-17.3); White Blood Count 6.6 T/CUMM (4-12)
[2022-01-23 05:23] LABS: Calcium 8.3 MG/DL (8.5-10.1); Osmolality,Calculated 293.7 MOS/KG (273-304); Potassium 3.9 MMOL/L (3.5-5.1)
[2022-01-23 05:26] LABS: Platelet Estimate Normal
[2022-01-23] MEDS: INSULIN LISPRO 100 UNIT/ML SUBCUT SCH (09:44)
[2022-01-23] MEDS: MULTIVITAMIN (CENTRUM) TABLET PO SCH (10:27)
[2022-01-23] MEDS: LACTULOSE 20 GM/30 ML UDCUP PO SCH (10:27)
[2022-01-23] MEDS: MEMANTINE 5 MG TABLET PO SCH (10:28)
[2022-01-23] MEDS: CHOLECALCIFEROL 1,000 UNIT TABLET PO SCH (10:28)
[2022-01-23] MEDS: allopurinoL 300 MG TABLET PO SCH (10:28)
[2022-01-23] MEDS: RIVASTIGMINE 1.5 MG CAPSULE PO SCH (10:28)
[2022-01-23] MEDS: PANTOPRAZOLE 40 MG VIAL IV SCH (10:28)
[2022-01-23] MEDS: METOPROLOL TARTRATE 25 MG TABLET PO SCH (10:28)
[2022-01-23 13:00] VITALS: BP 120/45
== END 2022-01-23 13:06 | DRG 981 ==
LOC: EDUNIT# → EDBD → N.ED 17:17 → SUATTDRO 20:07 → N.EDINP 20:07 → N.CC 22:00 → N.TELES 01-21 23:55
PROVIDERS: ADMIT Internal Medicine; ATTEND Internal Medicine

== ENCOUNTER 2022-02-13 21:19 | Inpatient (IN) ==
[2022-02-13] MEDS ORDERED: SODIUM CHLORIDE 0.9% 1,000 ML IV STA ×2 (21:45→22:36)
[2022-02-13 22:06] LABS: Basophils # 0.1 10*3/uL (0.0-0.2); Basophils % 0.1 % (0.0-0.8); Hematocrit 26.3 VOL% (42.0-52.0); Hemoglobin 8.4 GM/DL (14.0-18.0); Immature Granulocytes % 2.8 %; Immature Granulocytes Absolute 1.01 #; Lymphocytes # 0.9 10*3/uL (1.4-4.0); Lymphocytes % 2.4 % (21.2-54.2); Mean Corpuscular HGB Conc 31.9 GM/DL (32-36); Mean Corpuscular Volume 93.3 FL (87-102); Monocytes # 1.1 10*3/uL (0.11-0.8); Monocytes % 3.1 % (1.7-12.7); Neutrophils % 91.6 % (38.7-73.9); Platelet Count 353 T/CUMM (130-400); Red Blood Count 2.82 MC/CUMM (3.8-5.5); Red Cell Distribution Width 16.7 % (9.3-17.3); White Blood Count 36.3 T/CUMM (4-12)
[2022-02-13 22:27] LABS: Bacteria,Urine Occasional /HPF (Few); Hyaline Casts,Urine 5 /LPF (0-3); Mucus,Urine Occasional /LPF (Occasional); RBC,Urine <1 /HPF (0-4); Squamous Epithelial Cell,Urine Occasional /HPF (0-10)
[2022-02-13 22:28] LABS: Bilirubin,Urine Negative (Negative); Blood, Urine Negative (Negative); Glucose,Urine (UA) Negative (Negative); Ketones,Urine Negative (Negative); Nitrite,Urine Negative (Negative); Protein,Urine 30 mg/dL (Negative); Urine Appearance Clear (Clear); Urine Color Yellow (Yellow); Urine Urobilinogen 0.2 eU/dL (<2.0)
[2022-02-13 22:28] LABS: Lymphocytes 2 % (20-55); Platelet Estimate Normal; Total Cells Counted 100
[2022-02-13 22:29] LABS: Hypochromia 1+
[2022-02-13 22:32] LABS: Alanine Aminotransferase 311 U/L (16-61); Albumin 1.7 G/DL (3.4-5.0); Alkaline Phosphatase 237 U/L (45-117); Aspartate Amino Transferase 544 U/L (0-37); Blood Urea Nitrogen 77 MG/DL (7-18); Calcium 8.4 MG/DL (8.5-10.1); Carbon Dioxide 18 MMOL/L (21-32); Chloride 107 MMOL/L (98-107); Glucose 193 MG/DL (74-106); Potassium 3.1 MMOL/L (3.5-5.1); Sodium 143 MMOL/L (136-145)
[2022-02-13] MEDS ORDERED: PIPERACILLIN/TAZOBACTAM 3,375 MG in SODIUM CHLORIDE 0.9% 100 ML IV STA (22:39)
[2022-02-13] MEDS ORDERED: VANCOMYCIN INJ 1,000 MG in SODIUM CHLORIDE 0.9% 250 ML IV STA (23:30)
[2022-02-13] MEDS ORDERED: DEXTROSE 10% 250 ML BAG IV PRN (23:39)
[2022-02-13] MEDS ORDERED: hydrALAZINE 20 MG/1 ML VIAL IV PRN (23:39)
[2022-02-13] MEDS ORDERED: NICOTINE 21 MG/24 HR PATCH TRANSDERM PRN (23:39)
[2022-02-13] MEDS ORDERED: GLUCAGON 1 MG VIAL IM PRN (23:39)
[2022-02-13] MEDS ORDERED: VANCOMYCIN INJ 1,000 MG in SODIUM CHLORIDE 0.9% 250 ML IV PRN (23:45)
[2022-02-13] MEDS ORDERED: SODIUM CHLORIDE 0.9% 1,000 ML IV SCH (23:45)
[2022-02-13] MEDS ORDERED: SODIUM CHLORIDE 0.9% 1,000 ML IV ONE (23:50)
[2022-02-14] MEDS: INSULIN LISPRO 100 UNIT/ML SUBCUT SCH ×6 (00:27→21:51)
[2022-02-14 05:51] LABS: Basophils # 0.1 10*3/uL (0.0-0.2); Basophils % 0.2 % (0.0-0.8); Eosinophils % 0.1 % (0.00-10.9); Hematocrit 25.6 VOL% (42.0-52.0); Hemoglobin 8.2 GM/DL (14.0-18.0); Immature Granulocytes % 1.9 %; Immature Granulocytes Absolute 0.73 #; Lymphocytes # 1.4 10*3/uL (1.4-4.0); Lymphocytes % 3.7 % (21.2-54.2); Mean Corpuscular Volume 93.4 FL (87-102); Mean Platelet Volume 10.1 FL (9.6-12.0); Monocytes # 1.4 10*3/uL (0.11-0.8); Monocytes % 3.6 % (1.7-12.7); Neutrophils % 90.5 % (38.7-73.9); Platelet Count 323 T/CUMM (130-400); Red Blood Count 2.74 MC/CUMM (3.8-5.5); Red Cell Distribution Width 16.9 % (9.3-17.3); White Blood Count 37.7 T/CUMM (4-12)
[2022-02-14 06:11] LABS: Albumin 1.6 G/DL (3.4-5.0); Bilirubin,Total 0.5 MG/DL (0.20-1.00); Calcium 8.4 MG/DL (8.5-10.1); Osmolality,Calculated 311.7 MOS/KG (273-304); Potassium 2.9 MMOL/L (3.5-5.1); Total Protein 6.6 G/DL (6.4-8.2)
[2022-02-14 06:28] LABS: Hypochromia Slight; Lymphocytes 5 % (20-55); Platelet Estimate Normal; Total Cells Counted 100
[2022-02-14] MEDS ORDERED: POTASSIUM CHLORIDE RIDER 10 MEQ/100 ML PREMIX IV PRN (06:47)
[2022-02-14] MEDS ORDERED: POTASSIUM CHLORIDE 20 MEQ TABLET PO ONE ×2 (08:30→11:30)
[2022-02-14] MEDS: PIPERACILLIN/TAZOBACTAM 3,375 MG in SODIUM CHLORIDE 0.9% 100 ML IV SCH ×2 (09:51→23:55)
[2022-02-14] MEDS: HEPARIN 5,000 UNIT/1 ML VIAL SUBCUT SCH ×2 (09:52→21:50)
[2022-02-14] MEDS ORDERED: NEOSTIGMINE 10 MG/10 ML VIAL IV ONE (15:00)
[2022-02-14] MEDS: SODIUM CHLOR 0.9% KCL 40 MEQ 40 MEQ/1,000 ML BAG IV SCH (18:59)
[2022-02-15] MEDS: SODIUM CHLOR 0.9% KCL 40 MEQ 40 MEQ/1,000 ML BAG IV SCH ×2 (00:07→10:30)
[2022-02-15 07:12] LABS: Basophils # 0.1 10*3/uL (0.0-0.2); Basophils % 0.2 % (0.0-0.8); Hemoglobin 8.1 GM/DL (14.0-18.0); Immature Granulocytes % 1.8 %; Immature Granulocytes Absolute 0.58 #; Lymphocytes # 0.9 10*3/uL (1.4-4.0); Lymphocytes % 2.8 % (21.2-54.2); Mean Corpuscular HGB Conc 31.2 GM/DL (32-36); Mean Corpuscular Volume 96.3 FL (87-102); Mean Platelet Volume 9.8 FL (9.6-12.0); Monocytes % 3.2 % (1.7-12.7); Platelet Count 314 T/CUMM (130-400); Red Cell Distribution Width 17.1 % (9.3-17.3); White Blood Count 31.7 T/CUMM (4-12)
[2022-02-15 07:36] LABS: Albumin 1.4 G/DL (3.4-5.0); Bilirubin,Total 0.4 MG/DL (0.20-1.00); Calcium 8.2 MG/DL (8.5-10.1); Osmolality,Calculated 312.7 MOS/KG (273-304); Potassium 3.5 MMOL/L (3.5-5.1); Total Protein 6.3 G/DL (6.4-8.2)
[2022-02-15 07:56] LABS: Lymphocytes 3 % (20-55); Total Cells Counted 100
[2022-02-15 08:10] LABS: Microcytosis Slight
[2022-02-15] MEDS: INSULIN LISPRO 100 UNIT/ML SUBCUT SCH ×4 (08:18→22:48)
[2022-02-15] MEDS: PIPERACILLIN/TAZOBACTAM 3,375 MG in SODIUM CHLORIDE 0.9% 100 ML IV SCH ×2 (08:22→22:10)
[2022-02-15] MEDS: HEPARIN 5,000 UNIT/1 ML VIAL SUBCUT SCH ×2 (08:22→22:10)
[2022-02-15] MEDS ORDERED: VANCOMYCIN INJ 1,000 MG in SODIUM CHLORIDE 0.9% 250 ML IV ONE (13:00)
[2022-02-15] MEDS ORDERED: NEOSTIGMINE 10 MG/10 ML VIAL IV ONE (13:15)
[2022-02-15] MEDS: SODIUM BICARB IV SCH (18:07)
[2022-02-15] MEDS: [UNRECOGNIZED DRUG - OTHER] IV SCH (18:07)
[2022-02-15] MEDS: POTASSIUM CHLORIDE IV SCH (18:07)
[2022-02-15] MEDS ORDERED: MORPHINE 2 MG/1 ML SYRINGE IV PRN (19:48)
[2022-02-15] MEDS: HYDROmorphone 1 MG/1 ML SYRINGE IV PRN (22:14)
[2022-02-16] MEDS: POTASSIUM CHLORIDE IV SCH (05:11)
[2022-02-16] MEDS: SODIUM BICARB IV SCH (05:11)
[2022-02-16] MEDS: [UNRECOGNIZED DRUG - OTHER] IV SCH (05:11)
[2022-02-16 05:35] LABS: Hematocrit 24.2 VOL% (42.0-52.0); Immature Granulocytes % 0.3 %; Immature Granulocytes Absolute 0.02 #; Lymphocytes # 0.3 10*3/uL (1.4-4.0); Mean Corpuscular HGB Conc 33.1 GM/DL (32-36); Mean Corpuscular Volume 89.3 FL (87-102); Mean Platelet Volume 10.6 FL (9.6-12.0); Monocytes # 0.3 10*3/uL (0.11-0.8); Monocytes % 4.7 % (1.7-12.7); NRBC # 0.04 10*3/uL; Platelet Count 354 T/CUMM (130-400); Red Blood Count 2.71 MC/CUMM (3.8-5.5); Red Cell Distribution Width 17.1 % (9.3-17.3)
[2022-02-16 05:36] LABS: White Blood Count 6.4 T/CUMM (4-12)
[2022-02-16 05:41] LABS: Albumin 1.2 G/DL (3.4-5.0); Band Neutrophils 4 % (0-10); Bilirubin,Total 0.6 MG/DL (0.20-1.00); Calcium 7.8 MG/DL (8.5-10.1); Lymphocytes 2 % (20-55); Osmolality,Calculated 320.3 MOS/KG (273-304); Platelet Estimate Adequate; Potassium 3.5 MMOL/L (3.5-5.1); Total Cells Counted 100; Total Protein 5.1 G/DL (6.4-8.2)
[2022-02-16] MEDS: ONDANSETRON 4 MG/2 ML VIAL IV PRN ×2 (06:51→08:57)
[2022-02-16] MEDS ORDERED: [UNRECOGNIZED DRUG - OTHER] IV SCH (08:23)
[2022-02-16] MEDS ORDERED: SODIUM BICARB IV SCH ×2 (08:23→11:30)
[2022-02-16] MEDS ORDERED: POTASSIUM CHLORIDE IV SCH ×2 (08:23→11:30)
[2022-02-16] MEDS ORDERED: SODIUM CHLORIDE 0.45% 1,000 ML IV SCH (08:30)
[2022-02-16] MEDS: HYDROmorphone 1 MG/1 ML SYRINGE IV PRN ×2 (08:58→12:01)
[2022-02-16] MEDS: INSULIN LISPRO 100 UNIT/ML SUBCUT SCH ×2 (08:59→11:55)
[2022-02-16] MEDS: PIPERACILLIN/TAZOBACTAM 3,375 MG in SODIUM CHLORIDE 0.9% 100 ML IV SCH (09:05)
[2022-02-16] MEDS: HEPARIN 5,000 UNIT/1 ML VIAL SUBCUT SCH (09:06)
[2022-02-16] MEDS ORDERED: STERILE WATER IV SCH (11:30)
[2022-02-16] MEDS ORDERED: HYDROmorphone 1 MG/1 ML SYRINGE IV PRN (13:12)
[2022-02-16] MEDS ORDERED: VANCOMYCIN INJ 1,500 MG in SODIUM CHLORIDE 0.9% 500 ML IV ONE (14:00)
[2022-02-17] MEDS: ZINC OXIDE PASTE 113 GM TUBE TOP SCH ×2 (01:49→12:45)
[2022-02-17 12:49] VITALS: BP 129/60
== END 2022-02-17 13:09 | disposition hospice, home (50) | DRG 388 ==
LOC: EDBD → EDUNIT# → N.ED 21:19 → N.EDINP 23:39 → N.TELES 02-14 03:41
PROVIDERS: ADMIT Family Medicine; ATTEND Family Medicine